=== PATIENT | female | born 1985 | race Caucasian/White ===

== ENCOUNTER 2019-07-15 14:22 | Emergency (ER) | payer MEDICAID ==
--- NOTE | 2019-07-15 15:10 | EDM.PDOC ---
ED HPI GENERAL MEDICAL PROBLEM - General Chief Complaint: Abdominal Pain Stated Complaint: STOMACH PAIN Time Seen by Provider: 07/15/19 14:50 Source of Information: Reports: Patient, RN Notes Reviewed History Limitations: Reports: No Limitations - History of Present Illness INITIAL COMMENTS - FREE TEXT/NARRATIVE: Ginny presents with complaints of lower abdominal pain. She states the pain started 3 days ago to the left lower abdomen with radiation to the left back. Today the pain started to the right lower abdomen and radiates to the back. She has not tried anything for her pain. Pain is sharp and stabbing at times. She reports nothing helps the pain. - Related Data Allergies Allergy/AdvReac Type Severity Reaction Status Date / Time sulfamethoxazole Allergy Hives Verified 07/15/19 14:43 [From ] trimethoprim [From ] Allergy Hives Verified 07/15/19 14:43 Home Meds: Home Meds Levothyroxine 1 tab PO DAILY 07/15/19 [History] SUMAtriptan [Imitrex] 1 tab PO BID PRN 07/15/19 [History] traZODone HCl [Trazodone HCl] 1 tab PO BEDTIME 07/15/19 [History] Past Medical History - Past Surgical History GI Surgical History: Reports: Bariatric Procedure Female Surgical History: Reports: Section Social & Family History - Tobacco Use Smoking Status *Q: Never Smoker ED ROS GENERAL - Review of Systems Review Of Systems: See Below Constitutional: Reports: No Symptoms HEENT: Reports: No Symptoms Respiratory: Reports: No Symptoms Cardiovascular: Reports: No Symptoms Endocrine: Reports: No Symptoms GI/Abdominal: Reports: Abdominal Pain, Other (RLQ and LLQ abdominal pain. ). Denies: Black Stool, Bloody Stool, Constipation, Diarrhea, Decreased Appetite, Difficulty Swallowing, Distension, Hematochezia, Melena, Nausea, Vomiting : Reports: No Symptoms Musculoskeletal: Reports: Other (bilateral flank pain) Skin: Reports: No Symptoms Neurological: Reports: No Symptoms Psychiatric: Reports: No Symptoms Hematologic/Lymphatic: Reports: No Symptoms Immunologic: Reports: No Symptoms ED EXAM, GI/ABD - Physical Exam Exam: See Below Exam Limited By: No Limitations General Appearance: Alert, WD/WN, No Apparent Distress Eyes: Bilateral: Normal Appearance Ears: Normal External Exam, Normal Canal, Hearing Grossly Normal, Normal TMs Nose: Normal Inspection, Normal Mucosa, No Blood Throat/Mouth: Normal Inspection, Normal Lips, Normal Teeth, Normal Gums, Normal Oropharynx, Normal Voice, No Airway Compromise Head: Atraumatic, Normocephalic Neck: Normal Inspection, Supple, Non-Tender, Full Range of Motion. No: Lymphadenopathy (R), Lymphadenopathy (L) Respiratory/Chest: No Respiratory Distress, Lungs Clear, Normal Breath Sounds, No Accessory Muscle Use, Chest Non-Tender Cardiovascular: Normal Peripheral Pulses, Regular Rate, Rhythm, No Edema, No Gallop, No Murmur, No Rub GI/Abdominal Exam: Normal Bowel Sounds, Soft, No Organomegaly, No Distention, No Mass, Tender, Other (pain with palpation to RLQ, LLQ with palpation). No: Guarding, Rigid, Rebound Back Exam: Full Range of Motion, CVA Tenderness (R), CVA Tenderness (L). No: Muscle Spasm Extremities: Normal Inspection, Normal Range of Motion, Non-Tender, No Pedal Edema, Normal Capillary Refill Neurological: Alert, Oriented, Normal Cognition, Normal Gait, No Motor/Sensory Deficits Psychiatric: Normal Affect, Normal Mood Skin Exam: Warm, Dry, Intact, Normal Color, No Rash Lymphatic: No Adenopathy Course - Vital Signs Last Recorded V/S: Last Vital Signs Temp 36.9 C 07/15/19 14:51 Pulse 62 07/15/19 16:28 Resp 16 07/15/19 16:28 BP 113/65 07/15/19 16:28 Pulse Ox 100 07/15/19 16:28 - Orders/Labs/Meds Labs: Laboratory Tests 07/15/19 07/15/19 07/15/19 Range/Units 14:52 14:57 15:15 WBC 6.0 (4.5-11.0) K/uL RBC 4.60 (3.30-5.50) M/uL Hgb 12.2 (12.0-15.0) g/dL Hct 39.3 (36.0-48.0) % MCV 85 (80-98) fL MCH 27 (27-31) pg MCHC 31 L (32-36) % Plt Count 213 (150-400) K/uL Neut % (Auto) 58 (36-66) % Lymph % (Auto) 34 (24-44) % [place] % (Auto) 6 (2-6) % Eos % (Auto) 2 (2-4) % Baso % (Auto) 1 (0-1) % Sodium (140-148) mmol/L Potassium (3.6-5.2) mmol/L Chloride (100-108) mmol/L Carbon Dioxide (21-32) mmol/L Anion Gap (5.0-14.0) mmol/L BUN (7-18) mg/dL Creatinine (0.6-1.0) mg/dL Est Cr Clr Drug Dosing mL/min Estimated GFR (MDRD) (>60) Glucose (74-106) mg/dL Calcium (8.5-10.1) mg/dL Urine Color Yellow (YELLOW) Urine Appearance Clear (CLEAR) Urine pH 6.0 (5.0-8.0) Ur Specific [place] >= 1.030 (1.008-1.030) Urine Protein Negative (NEGATIVE) mg/dL Urine Glucose (UA) Negative (NEGATIVE) mg/dL Urine Ketones Trace H (NEGATIVE) mg/dL Urine Occult Blood Negative (NEGATIVE) Urine Nitrite Negative (NEGATIVE) Urine Bilirubin Negative (NEGATIVE) Urine Urobilinogen 1.0 (0.2-1.0) EU/dL Ur Leukocyte Esterase Negative (NEGATIVE) Urine RBC Not seen (0-5) Urine WBC 0-5 (0-5) Ur Epithelial Cells Moderate Urine Bacteria Moderate Urine Mucus Many Urine HCG, Qual Negative 07/15/19 Range/Units 15:15 WBC (4.5-11.0) K/uL RBC (3.30-5.50) M/uL Hgb (12.0-15.0) g/dL Hct (36.0-48.0) % MCV (80-98) fL MCH (27-31) pg MCHC (32-36) % Plt Count (150-400) K/uL Neut % (Auto) (36-66) % Lymph % (Auto) (24-44) % [place] % (Auto) (2-6) % Eos % (Auto) (2-4) % Baso % (Auto) (0-1) % Sodium 142 (140-148) mmol/L Potassium 3.9 (3.6-5.2) mmol/L Chloride 104 (100-108) mmol/L Carbon Dioxide 28 (21-32) mmol/L Anion Gap 9.8 (5.0-14.0) mmol/L BUN 12 (7-18) mg/dL Creatinine 1.0 (0.6-1.0) mg/dL Est Cr Clr Drug Dosing 69.74 mL/min Estimated GFR (MDRD) > 60 (>60) Glucose 89 (74-106) mg/dL Calcium 8.6 (8.5-10.1) mg/dL Urine Color (YELLOW) Urine Appearance (CLEAR) Urine pH (5.0-8.0) Ur Specific [place] (1.008-1.030) Urine Protein (NEGATIVE) mg/dL Urine Glucose (UA) (NEGATIVE) mg/dL Urine Ketones (NEGATIVE) mg/dL Urine Occult Blood (NEGATIVE) Urine Nitrite (NEGATIVE) Urine Bilirubin (NEGATIVE) Urine Urobilinogen (0.2-1.0) EU/dL Ur Leukocyte Esterase (NEGATIVE) Urine RBC (0-5) Urine WBC (0-5) Ur Epithelial Cells Urine Bacteria Urine Mucus Urine HCG, Qual No significant findings of lab work. She will have toradol 60mg IM Complete CT abdomen/pelvis without contrast history of bariatric surgery, multiple c-sections Meds: Medications Discontinued Medications Generic Name Dose Route Start Last Admin Trade Name Freq PRN Reason Stop Dose Admin Ketorolac Tromethamine 60 mg 07/15/19 15:45 07/15/19 15:50 Toradol IM 07/15/19 15:46 60 mg ONETIME ONE Administration - Radiology Interpretation Free Text/Narrative:: CT scan was normal with noted: nonspecific inflammatory changes within the peritoneum in the left lower quadrant. These findings were reviewed with Dr. Guidry of . No concern for infection at this time. Patient can follow up with primary. - Re-Assessments/Exams Free Text/Narrative Re-Assessment/Exam: 07/15/19 16:40 Pain improved, patient notified of CT findings, all her questions were answered. She is in agreement with plan. Departure - Departure Time of Disposition: 16:36 Disposition: Home, Self-Care 01 Condition: Good Clinical Impression: Abdominal pain - Discharge Information *PRESCRIPTION DRUG MONITORING PROGRAM REVIEWED*: Not Applicable *COPY OF PRESCRIPTION DRUG MONITORING REPORT IN PATIENT ROBERTO: Not Applicable Instructions: Abdominal Pain, Adult, [id number] Referrals: Brandie Graves PA-C [Primary Care Provider] - Forms: ED Department Discharge Additional Instructions: You have been evaluated and treated for right lower quadrant and left lower quadrant abdominal pain. Your lab work was normal (cbc, bmp, ua) Your CT scan was normal with noted: nonspecific inflammatory changes within the peritoneum in the left lower quadrant. These findings were reviewed with Dr. Guidry of [place]. Drink plenty of fluids to avoid constipation. Take tylenol and as needed for pain. Follow up with primary provider in 7 to 10 days for a recheck. If pain worsens, you have issues or concerns return to the emergency room. Sepsis Event Note - Evaluation Sepsis Screening Result: No Definite Risk - Focused Exam Vital Signs: Vital Signs Temp Pulse Resp BP Pulse Ox 07/15/19 16:28 62 16 113/65 100 07/15/19 14:51 36.9 C 75 15 106/53 L 97 07/15/19 14:38 36.9 C 75 15 106/53 L 97 Date Exam was Performed: 07/15/19 Time Exam was Performed: 16:50 - Assessment/Plan Assessment:: Abdominal pain Plan: Patient evaluated and treated for right lower quadrant and left lower quadrant abdominal pain. Lab work was normal (cbc, bmp, ua) CT scan was normal with noted: nonspecific inflammatory changes within the peritoneum in the left lower quadrant. These findings were reviewed with Dr. Guidry of [place]. Drink plenty of fluids to avoid constipation. Take tylenol and as needed for pain. Follow up with primary provider in 7 to 10 days for a recheck. If pain worsens, have issues or concerns return to the emergency room.
[2019-07-15] MEDS ORDERED: Ketorolac 60 MG/2 ML SDV IM ONE (15:45)
--- NOTE | 2019-07-15 16:23 | CRLCT ---
Indication: Right lower quadrant pain. Left lower quadrant pain. Technique: Multiple contiguous axial images were obtained from the lung bases is symphysis pubis without intravenous contrast enhancement. Please note that all CT scans at this facility use dose modulation, iterative reconstruction, and/or weight-based dosing when appropriate to reduce radiation dose to as low as reasonably achievable. Comparison: None Findings: The lung bases are clear. The heart is normal in size. No pericardial effusion is identified. Postsurgical changes of a gastric bypass are identified. The unenhanced liver, spleen, pancreas, gallbladder, adrenals, and kidneys are normal. No intrahepatic there extrahepatic biliary ductal dilatation is identified. In the pelvis, the uterus has a grossly normal appearance. The urinary bladder is grossly normal. The small and large bowel are normal in caliber. An area of mild inflammation is identified in the left lower quadrant. There is no associated diverticula in this region. This is nonspecific. The appendix is normal in caliber. No inflammatory changes are identified in the right lower quadrant. No free air or free fluid is identified within the abdomen or pelvis. The aorta is normal in caliber. Impression: Visited change of the gastric bypass. Postoperative changes of the small bowel in the left upper quadrant. No evidence of bowel obstruction. Minimal nonspecific inflammatory changes identified within the peritoneum in the left lower quadrant, best seen on image number 109, series 2. There are no associated diverticula in this region. There is no evidence of appendicitis. Please note that all CT scans at this facility use dose modulation, iterative reconstruction, and/or weight-based dosing when appropriate to reduce radiation dose to as low as reasonably achievable. Dictated by Dolores Hanley MD @ Jul 15 2019 4:17PM Signed by Dr. Dolores Hanley @ Jul 15 2019 4:21PM
== END 2019-07-15 17:20 | disposition home or self-care (01) ==
LOC: JP.ED 14:22
DX: R10.31 Right lower quadrant pain (principal); R10.32 Left lower quadrant pain; Z88.2 Allergy status to sulfonamides; Z79.899 Other long term (current) drug therapy
CPT/HCPCS: 36415; 74176; 80048; 81001; 81025; 85025; 96372; 99284; J1885

== ENCOUNTER 2020-07-03 21:55 | Emergency (ER) | payer MEDICAID ==
[2020-07-03] MEDS ORDERED: Ketorolac 30 MG/ML SDV IM ONE (22:35)
--- NOTE | 2020-07-04 00:38 | EDM.PDOC ---
ED HPI GENERAL MEDICAL PROBLEM - General Chief Complaint: Abdominal Pain Stated Complaint: LOVER ABD/BACK PAIN Time Seen by Provider: 07/03/20 22:34 Source of Information: Reports: Patient History Limitations: Reports: No Limitations - History of Present Illness INITIAL COMMENTS - FREE TEXT/NARRATIVE: Ginny is a 34-year-old female presenting to the ED for evaluation of left lower quadrant abdominal pain radiating into the pelvis. The patient states her pain started tonight around 6 PM and has been fairly persistent. She rates it a comfortable 10 out of 10 in intensity. She states that she has been having the symptoms nearly daily since 7 months ago, however, they usually occur and last only about 10 to 15 minutes and then subside. Today the pain has been persistent for the last 4 hours and now radiates into her lower back. She denies any fever, chills, nausea or vomiting, or urinary symptoms like urgency, frequency, or burning with urination. She denies any dyspareunia. She has been seen in the clinic for this several times and tells me that she has been told that they never were able to find anything causing her pain. left lower abd Pain Score (Numeric/FACES): 10 - Related Data Allergies Allergy/AdvReac Type Severity Reaction Status Date / Time sulfamethoxazole Allergy Hives Verified 07/03/20 22:14 [From ] trimethoprim [From ] Allergy Hives Verified 07/03/20 22:14 Home Meds: Home Meds Levothyroxine 175 mg PO DAILY 07/15/19 [History] SUMAtriptan [Imitrex] 1 tab PO BID PRN 07/15/19 [History] traZODone HCl [Trazodone HCl] 1 tab PO BEDTIME 07/15/19 [History] Sertraline [Zoloft] 50 mg PO BEDTIME 07/03/20 [History] Past Medical History HEENT History: Reports: Impaired Vision, Other (See Below) Other HEENT History: glasses CODE INSPECTOR History: Reports: , Other (See Below) Other CODE INSPECTOR History: enlarged left ovary Neurological History: Reports: Headaches, Chronic Psychiatric History: Reports: Anxiety, Depression Endocrine/Metabolic History: Reports: Hyperthyroidism - Infectious Disease History Infectious Disease History: Reports: Chicken Pox - Past Surgical History GI Surgical History: Reports: Bariatric Procedure, Cholecystectomy Female Surgical History: Reports: Section Endocrine Surgical History: Reports: Thyroidectomy Social & Family History - Tobacco Use Tobacco Use Status *Q: Never Tobacco User - Recreational Drug Use Recreational Drug Use: No ED ROS GENERAL - Review of Systems Review Of Systems: See Below Constitutional: Reports: No Symptoms HEENT: Reports: No Symptoms Respiratory: Reports: No Symptoms Cardiovascular: Reports: No Symptoms Endocrine: Reports: No Symptoms GI/Abdominal: Reports: Abdominal Pain (Left lower quadrant rating into the pelvis, pain started 4 hours ago and has been constant at a 10 out of 10.) : Reports: Pain (Pelvic pain on the left side the last 4 hours) Musculoskeletal: Reports: Back Pain Skin: Reports: No Symptoms Neurological: Reports: No Symptoms Psychiatric: Reports: No Symptoms Hematologic/Lymphatic: Reports: No Symptoms Immunologic: Reports: No Symptoms ED EXAM, GI/ABD - Physical Exam Exam: See Below Exam Limited By: No Limitations General Appearance: Alert, No Apparent Distress (She does not appear to be in any significant pain despite reporting 10 out of 10 intensity pain in her left lower quadrant and pelvis.) Eyes: Bilateral: EOMI Head: Atraumatic Neck: Normal Inspection, Supple Respiratory/Chest: No Respiratory Distress, Lungs Clear, Normal Breath Sounds Cardiovascular: Normal Peripheral Pulses, Regular Rate, Rhythm, No Murmur GI/Abdominal Exam: Normal Bowel Sounds, Soft, Tender (Mild tenderness in the left lower quadrant. Mild to moderate tenderness in the suprapubic region.). No: Guarding, Rigid, Rebound (Female) Exam: Normal External Exam, Normal Speculum Exam, Adnexal Tenderness (Left adnexal tenderness with mild fullness on the left side.). No: Adnexal Mass, Cervix Motion Tenderness Back Exam: Normal Inspection, Full Range of Motion Extremities: Normal Inspection Neurological: Alert, Oriented, Normal Cognition, No Motor/Sensory Deficits Psychiatric: Normal Affect, Normal Mood Skin Exam: Warm, Dry Lymphatic: No Adenopathy Course - Vital Signs Last Recorded V/S: Last Vital Signs Temp 36.4 C 07/04/20 01:24 Pulse 81 07/04/20 01:24 Resp 14 07/04/20 01:24 BP 107/79 07/04/20 01:24 Pulse Ox 99 07/04/20 01:24 - Orders/Labs/Meds Orders: Active Orders 24 hr Category Date Time Status Transvaginal Non OB [US] Routine Exams 07/04/20 Ordered VL Duplex Abd Pel Ret Ltd [US] Routine Exams 07/04/20 Ordered Labs: Laboratory Tests 07/03/20 07/03/20 07/03/20 Range/Units 22:40 22:40 22:43 WBC 6.7 (4.5-11.0) K/uL RBC 4.42 (3.30-5.50) M/uL Hgb 10.7 L (12.0-15.0) g/dL Hct 36.1 (36.0-48.0) % MCV 82 (80-98) fL MCH 24 L (27-31) pg MCHC 30 L (32-36) % Plt Count 229 (150-400) K/uL Neut % (Auto) 59.1 (36-66) % Lymph % (Auto) 27.3 (24-44) % [place] % (Auto) 8.4 H (2-6) % Eos % (Auto) 3.9 (2-4) % Baso % (Auto) 1.3 H (0-1) % Sodium 143 (140-148) mmol/L Potassium 4.4 (3.6-5.2) mmol/L Chloride 105 (100-108) mmol/L Carbon Dioxide 28 (21-32) mmol/L Anion Gap 10.0 (5.0-14.0) mmol/L BUN 20 H D (7-18) mg/dL Creatinine 0.8 (0.6-1.0) mg/dL Est Cr Clr Drug Dosing 86.37 mL/min Estimated GFR (MDRD) > 60 (>60) Glucose 88 (74-106) mg/dL Calcium 8.3 L (8.5-10.1) mg/dL Total Bilirubin 0.3 (0.2-1.0) mg/dL AST 22 (15-37) U/L ALT 30 (12-78) U/L Alkaline Phosphatase 88 (46-116) U/L C-Reactive Protein < 0.05 (0.0-0.3) mg/dL Total Protein 6.8 (6.4-8.2) g/dL Albumin 3.6 (3.4-5.0) g/dL Globulin 3.2 (2.3-3.5) g/dL Albumin/Globulin Ratio 1.1 L (1.2-2.2) Urine Color Yellow (YELLOW) Urine Appearance Clear (CLEAR) Urine pH 7.0 (5.0-8.0) Ur Specific [place] 1.025 (1.008-1.030) Urine Protein Negative (NEGATIVE) mg/dL Urine Glucose (UA) Negative (NEGATIVE) mg/dL Urine Ketones Negative (NEGATIVE) mg/dL Urine Occult Blood Negative (NEGATIVE) Urine Nitrite Negative (NEGATIVE) Urine Bilirubin Negative (NEGATIVE) Urine Urobilinogen 1.0 (0.2-1.0) EU/dL Ur Leukocyte Esterase Negative (NEGATIVE) Urine RBC 0-5 (0-5) Urine WBC 0-5 (0-5) Ur Epithelial Cells Few Amorphous Sediment Few Urine Bacteria Few Urine Mucus Not seen Urine HCG, Qual 07/03/20 Range/Units 22:43 WBC (4.5-11.0) K/uL RBC (3.30-5.50) M/uL Hgb (12.0-15.0) g/dL Hct (36.0-48.0) % MCV (80-98) fL MCH (27-31) pg MCHC (32-36) % Plt Count (150-400) K/uL Neut % (Auto) (36-66) % Lymph % (Auto) (24-44) % [place] % (Auto) (2-6) % Eos % (Auto) (2-4) % Baso % (Auto) (0-1) % Sodium (140-148) mmol/L Potassium (3.6-5.2) mmol/L Chloride (100-108) mmol/L Carbon Dioxide (21-32) mmol/L Anion Gap (5.0-14.0) mmol/L BUN (7-18) mg/dL Creatinine (0.6-1.0) mg/dL Est Cr Clr Drug Dosing mL/min Estimated GFR (MDRD) (>60) Glucose (74-106) mg/dL Calcium (8.5-10.1) mg/dL Total Bilirubin (0.2-1.0) mg/dL AST (15-37) U/L ALT (12-78) U/L Alkaline Phosphatase (46-116) U/L C-Reactive Protein (0.0-0.3) mg/dL Total Protein (6.4-8.2) g/dL Albumin (3.4-5.0) g/dL Globulin (2.3-3.5) g/dL Albumin/Globulin Ratio (1.2-2.2) Urine Color (YELLOW) Urine Appearance (CLEAR) Urine pH (5.0-8.0) Ur Specific [place] (1.008-1.030) Urine Protein (NEGATIVE) mg/dL Urine Glucose (UA) (NEGATIVE) mg/dL Urine Ketones (NEGATIVE) mg/dL Urine Occult Blood (NEGATIVE) Urine Nitrite (NEGATIVE) Urine Bilirubin (NEGATIVE) Urine Urobilinogen (0.2-1.0) EU/dL Ur Leukocyte Esterase (NEGATIVE) Urine RBC (0-5) Urine WBC (0-5) Ur Epithelial Cells Amorphous Sediment Urine Bacteria Urine Mucus Urine HCG, Qual Negative Meds: Medications Discontinued Medications Generic Name Dose Route Start Last Admin Trade Name Freq PRN Reason Stop Dose Admin Ketorolac Tromethamine 30 mg 07/03/20 22:35 07/03/20 22:44 Ketorolac 30 Mg/Ml Sdv IM 07/03/20 22:36 30 mg ONETIME ONE Administration Ketorolac Tromethamine 15 mg 07/04/20 01:26 07/04/20 01:51 Ketorolac 30 Mg/Ml Sdv IM 07/04/20 01:27 15 mg ONETIME ONE Administration - Re-Assessments/Exams Free Text/Narrative Re-Assessment/Exam: 07/04/20 00:41 reviewed the patient's labs showing a normal CBC and comprehensive metabolic profile with the exception of a BUN of 20. Her u rinalysis is unremarkable. Her urine is negative. We proceeded with a pelvic exam showing some fullness and tenderness on the left side. I suspect that she has an ovarian cyst, however, we will get an ultrasound to make sure she does not have ovarian torsion. Her abdominal exam is otherwise underwhelming considering the amount of pain she is reporting. Patient did get Toradol 30 mg IM with improvement in her symptoms. Gonococcal and chlamydia swabs are pending. 07/04/20 02:09 an ultrasound of the pelvis was performed with transabdominal and transvaginal imaging. The patient has a dominant follicle on the left ovary measuring 1.9 x 1.8 x 1.4 cm. This appears to be a simple cyst. There is no free fluid in the pelvis. Based on the pelvic exam, the patient was quite tender wit h palpation of the ovary and this is likely the nidus for her left lower quadrant pain. We will put her on Toradol 10 mg 4 times daily as needed for pain and give her a prescription for a few hydrocodone for breakthrough pain. If not improving, she should follow-up with her primary care provider. Departure - Departure Time of Disposition: 02:10 Disposition: Home, Self-Care 01 Clinical Impression: Left lower quadrant abdominal pain, Left ovarian cyst - Discharge Information Instructions: Ovarian Cyst, Abdominal Pain, Adult, [id number] Referrals: Gregoria Wan MD [Primary Care Provider] - Forms: ED Department Discharge Care Plan Goals: Your labs were unremarkable for any significant abnormalities including your CBC, comprehensive metabolic profile, and urinalysis. Urine was negative. Your ultrasound showed a simple left ovarian cyst measuring 1.9 x 1.8 x 1.4 cm. There was no evidence for bleeding in the cyst nor was there evidence for free fluid in the pelvis that would indicate that the cyst was leaking. This is likely the cause for your left lower quadrant abdominal pain. We will continue to treat with Toradol 10 mg 4 times a day as needed for pain control. In addition, I am sending you with a small amount of hydrocodone for breakthrough pain. Please use this quite sparingly as it can induce significant constipation and ultimately worsen your pain. I recommend you follow-up with your primary care provider if continued problems with this issue. Sepsis Event Note (ED) - Evaluation Sepsis Screening Result: No Definite Risk - Focused Exam Vital Signs: Vital Signs Temp Pulse Resp BP Pulse Ox 07/04/20 01:24 36.4 C 81 14 107/79 99 07/03/20 22:20 36.5 C 76 16 114/76 100 07/03/20 22:07 36.5 C 76 16 114/76 100 - Problem List & Annotations (1) Left lower quadrant abdominal pain SNOMED Code(s): 576205414 Code(s): R10.32 - LEFT LOWER QUADRANT PAIN Status: Acute Priority: High Current Visit: Yes (2) Left ovarian cyst SNOMED Code(s): 38208711 Code(s): N83.202 - UNSPECIFIED OVARIAN CYST, LEFT SIDE Status: Acute Priority: High Current Visit: Yes - Problem List Review Problem List Initiated/Reviewed/Updated: Yes - My Orders Last 24 Hours: My Active Orders 07/04/20 Transvaginal Non OB [US] Routine VL Duplex Abd Pel Ret Ltd [US] Routine - Assessment/Plan Last 24 Hours: My Active Orders 07/04/20 Transvaginal Non OB [US] Routine VL Duplex Abd Pel Ret Ltd [US] Routine
[2020-07-04] MEDS ORDERED: Ketorolac 30 MG/ML SDV IM ONE (01:26)
--- NOTE | 2020-07-04 02:03 | CRLUS ---
INDICATION: Left pelvic pain. COMPARISON: Report of the CT of the abdomen and pelvis from 07/15/2019 FINDINGS: Transvaginal and transabdominal ultrasound examination of the female pelvis was performed. Initial examination is performed with transabdominal technique and transvaginal technique is used for better visualization of the pelvic structures. The uterus is anteverted with no evidence of mass. It measures 10.4 x 3.4 x 7.1 cm. The endometrial lining is mildly increased in thickness at 9 mm. Incidental note is made of a small amount of fluid in the cervix. The right ovary is normal in appearance. The left ovary contains a dominant simple follicular cyst measuring 1.9 x 1.8 x 1.4 centimeters. The ovaries are normal in size, the right measuring 3.7 x 2.3 x 1.8 cm and the left measuring 4.6 x 2.8 x 1.3 cm. There is normal color and pulse doppler flow in both ovaries. There is no sign of free fluid in the pelvis. IMPRESSION: Normal ultrasound examination of the female pelvis using transvaginal and transabdominal technique. Dominant left follicular simple cyst measuring up to 1.9 centimeters in diameter. Dictated by Delano Reyes MD @ 07/04/2020 2:02:[address] Delano Reyes @ Jul 04 2020 2:02AM
--- NOTE | 2020-07-04 08:51 | CRLUS ---
Final Report: INDICATION: Left pelvic pain. COMPARISON: Report of the CT of the abdomen and pelvis from 07/15/2019 FINDINGS: Transvaginal and transabdominal ultrasound examination of the female pelvis was performed. Initial examination is performed with transabdominal technique and transvaginal technique is used for better visualization of the pelvic structures. The uterus is anteverted with no evidence of mass. It measures 10.4 x 3.4 x 7.1 cm. The endometrial lining is mildly increased in thickness at 9 mm. Incidental note is made of a small amount of fluid in the cervix. The right ovary is normal in appearance. The left ovary contains a dominant simple follicular cyst measuring 1.9 x 1.8 x 1.4 centimeters. The ovaries are normal in size, the right measuring 3.7 x 2.3 x 1.8 cm and the left measuring 4.6 x 2.8 x 1.3 cm. There is normal color and pulse doppler flow in both ovaries. There is no sign of free fluid in the pelvis. IMPRESSION: Normal ultrasound examination of the female pelvis using transvaginal and transabdominal technique. Dominant left follicular simple cyst measuring up to 1.9 centimeters in diameter. Dictated by Delano Reyes MD @ 07/04/2020 2:02:39 AM Signed by: Delano Reyes MD @07/04/2020 2:02:39 AM (Electronic Signature) MTDD
[2020-07-06 16:12] LABS: CHLAMYDIA TRACHOMATIS, NAA Negative (Negative); NEISSERIA GONORRHOEAE, NAA Negative (Negative)
== END 2020-07-04 02:26 | disposition home or self-care (01) ==
LOC: JP.ED 21:55
DX: N83.202 Unspecified ovarian cyst, left side (principal); E03.9 Hypothyroidism, unspecified; Z88.1 Allergy status to other antibiotic agents; Z79.899 Other long term (current) drug therapy
CPT/HCPCS: 36415; 76830; 76856; 80053; 81001; 81025; 85025; 86140; 87210; 87491; 87591; 93976; 96372; 99283; 99284-25; J1885

== ENCOUNTER 2020-09-16 20:08 | Emergency (ER) | payer MEDICAID ==
[2020-09-16] MEDS ORDERED: Sodium Chloride 0.9% 10 ML Syringe FLUSH PRN (21:10)
[2020-09-16] MEDS ORDERED: Ketorolac 30 MG/ML SDV IVPUSH ONE (21:12)
[2020-09-16] MEDS ORDERED: diphenhydrAMINE 50 MG/ML SDV IVPUSH ONE (21:12)
[2020-09-16] MEDS ORDERED: Prochlorperazine 10 MG/2 ML SDV IVPUSH ONE (21:12)
[2020-09-16] MEDS ORDERED: Lactated Ringers 1,000 ML IV SCH (21:15)
--- NOTE | 2020-09-16 21:16 | EDM.PDOC ---
ED HPI GENERAL MEDICAL PROBLEM - General Chief Complaint: Headache Stated Complaint: HEADACHE, BLURRED VISION, SHAKEY , SOB Time Seen by Provider: 09/16/20 21:01 Source of Information: Reports: Patient, Old Records, RN Notes Reviewed - History of Present Illness INITIAL COMMENTS - FREE TEXT/NARRATIVE: 34-year-old female presents emergency department day complaint of headache, she has had a headache for about 24 hours does have a history of migraines she states this is different for her she does have frontal type headache problems with the vision vision is blurry she has had some nausea no vomiting the light does bother her this headache is more intense. She is also having some chest pain rates the chest pain 8 out of 10 it does come and go it is worse with exertion she does have nausea and chills with the chest pain does feel short of breath she has no cardiac history she is unsure if she has any family history she does have a history of gastric bypass as well. Review of systems is diffic ult to obtain as she seems to be positive for most questions she is a poor historian Headache Pain Score (Numeric/FACES): 10 - Related Data Allergies Allergy/AdvReac Type Severity Reaction Status Date / Time sulfamethoxazole Allergy Hives Verified 07/03/20 22:14 [From ] trimethoprim [From ] Allergy Hives Verified 07/03/20 22:14 Home Meds: Home Meds Levothyroxine 175 mg PO DAILY 07/15/19 [History] SUMAtriptan [Imitrex] 1 tab PO BID PRN 07/15/19 [History] traZODone HCl [Trazodone HCl] 1 tab PO BEDTIME 07/15/19 [History] Sertraline [Zoloft] 50 mg PO BEDTIME 07/03/20 [History] Ferrous Sulfate 220 mg PO DAILY 09/16/20 [History] Past Medical History HEENT History: Reports: Impaired Vision, Other (See Below) Other HEENT History: glasses [employer] History: Reports: , Other (See Below) Other [employer] History: enlarged left ovary Neurological History: Reports: Headaches, Chronic Psychiatric History: Reports: Anxiety, Depression Endocrine/Metabolic History: Reports: Hyperthyroidism - Infectious Disease History Infectious Disease History: Reports: Chicken Pox - Past Surgical History GI Surgical History: Reports: Bariatric Procedure, Cholecystectomy Female Surgical History: Reports: Section Endocrine Surgical History: Reports: Thyroidectomy Social & Family History - Tobacco Use Tobacco Use Status *Q: Never Tobacco User - Caffeine Use Caffeine Use: Reports: Coffee - Recreational Drug Use Recreational Drug Use: No ED ROS GENERAL - Review of Systems Review Of Systems: Unable To Obtain Reason Not Obtained: Positive for every review of systems - Physical Exam Exam: See Below Exam Limited By: No Limitations General Appearance: Alert, WD/WN, No Apparent Distress Eye Exam: Bilateral Eye: EOMI, Normal Fundi, Normal Inspection, PERRL Respiratory/Chest: No Respiratory Distress, Lungs Clear, Normal Breath Sounds, No Accessory Muscle Use, Chest Non-Tender Cardiovascular: Regular Rate, Rhythm, No Murmur GI/Abdominal: Soft, Non-Tender Extremities: No Pedal Edema #1 Interpretation EKG Date: 09/16/20 Time: 21:33 Rhythm: NSR Crane: Normal P-Wave: Present QRS: Normal ST-T: Normal QT: Normal Comparison: NA - No Prior EKG Course - Vital Signs Last Recorded V/S: Last Vital Signs Temp 97.9 F 09/16/20 20:40 Pulse 73 09/16/20 20:40 Resp 16 09/16/20 20:40 BP 107/64 09/16/20 20:40 Pulse Ox 100 09/16/20 20:40 - Orders/Labs/Meds Orders: Active Orders 24 hr Category Date Time Status EKG Documentation Completion [RC] ASDIRECTED Care 09/16/20 21:11 Active Peripheral IV Care [RC] . DIRECTED Care 09/16/20 21:11 Active Lactated Ringers [Ringers, Lactated] 1,000 ml Med 09/16/20 21:15 Active IV .BOLUS Sodium Chloride 0.9% [Saline Flush] Med 09/16/20 21:10 Active 10 ml FLUSH ASDIRECTED PRN Peripheral IV Insertion Adult [OM.PC] Urgent Oth 09/16/20 21:10 Ordered EKG 12 Lead [EK] Stat Ther 09/16/20 21:10 Ordered Medication Orders Lactated Ringer's (Ringers, Lactated) 1,000 mls @ 500 mls/hr IV .BOLUS FABRIZIO Last Admin: 09/16/20 21:42 Dose: 500 mls/hr Documented by: ALISA Sodium Chloride (Sodium Chloride 0.9% 10 Ml Syringe) 10 ml FLUSH ASDIRECTED PRN PRN Reason: Keep Vein Open Last Admin: 09/16/20 21:48 Dose: 10 ml Documented by: ALISA Labs: Laboratory Tests 09/16/20 09/16/20 09/16/20 Range/Units 21:24 21:24 21:24 WBC 6.7 (4.5-11.0) K/uL RBC 4.42 (3.30-5.50) M/uL Hgb 10.6 L (12.0-15.0) g/dL Hct 34.2 L (36.0-48.0) % MCV 77 L (80-98) fL MCH 24 L (27-31) pg MCHC 31 L (32-36) % Plt Count 233 (150-400) K/uL Neut % (Auto) 58.4 (36-66) % Lymph % (Auto) 28.9 (24-44) % Posey % (Auto) 9.3 H (2-6) % Eos % (Auto) 2.7 (2-4) % Baso % (Auto) 0.7 (0-1) % Sodium 142 (140-148) mmol/L Potassium 3.8 (3.6-5.2) mmol/L Chloride 105 (100-108) mmol/L Carbon Dioxide 27 (21-32) mmol/L Anion Gap 9.6 (5.0-14.0) mmol/L BUN 13 (7-18) mg/dL Creatinine 0.8 (0.6-1.0) mg/dL Est Cr Clr Drug Dosing 86.37 mL/min Estimated GFR (MDRD) > 60 (>60) Glucose 89 (74-106) mg/dL Lactic Acid 0.5 (0.4-2.0) mmol/L Calcium 8.4 L (8.5-10.1) mg/dL Total Bilirubin 0.2 (0.2-1.0) mg/dL AST 18 (15-37) U/L ALT 23 (12-78) U/L Alkaline Phosphatase 85 (46-116) U/L Troponin I < 0.017 (0.000-0.056) ng/mL Total Protein 6.7 (6.4-8.2) g/dL Albumin 3.3 L (3.4-5.0) g/dL Globulin 3.4 (2.3-3.5) g/dL Albumin/Globulin Ratio 1.0 L (1.2-2.2) Meds: Medications Generic Name Dose Route Start Last Admin Trade Name Freq PRN Reason Stop Dose Admin Lactated Ringer's 1,000 mls @ 500 mls/hr 09/16/20 21:15 09/16/20 21:42 Ringers, Lactated IV 500 mls/hr .BOLUS FABRIZIO Administration Sodium Chloride 10 ml 09/16/20 21:10 09/16/20 21:48 Sodium Chloride 0.9% 10 Ml Syringe FLUSH 10 ml ASDIRECTED PRN Administration Keep Vein Open Discontinued Medications Generic Name Dose Route Start Last Admin Trade Name Freq PRN Reason Stop Dose Admin Diphenhydramine HCl 25 mg 09/16/20 21:12 09/16/20 21:42 Diphenhydramine 50 Mg/Ml Sdv IVPUSH 09/16/20 21:13 25 mg ONETIME ONE Administration Ketorolac Tromethamine 30 mg 09/16/20 21:12 09/16/20 21:43 Ketorolac 30 Mg/Ml Sdv IVPUSH 09/16/20 21:13 30 mg ONETIME ONE Administration Prochlorperazine Edisylate 5 mg 09/16/20 21:12 09/16/20 21:45 Prochlorperazine 10 Mg/2 Ml Sdv IVPUSH 09/16/20 21:13 5 mg ONETIME ONE Administration Departure - Departure Time of Disposition: 23:00 Disposition: Home, Self-Care 01 Condition: Fair Clinical Impression: Migraine - Discharge Information Instructions: Migraine Headache, [id number] Referrals: PCP,None [Primary Care Provider] - Forms: ED Department Discharge Additional Instructions: Continue with your regular medications, please followup with your primary care provider in 3-5 days if not better, please call return to the emergency department with worsening of symptoms. Sepsis Event Note (ED) - Evaluation Sepsis Screening Result: No Definite Risk - Focused Exam Vital Signs: Vital Signs Temp Pulse Resp BP Pulse Ox 09/16/20 20:40 97.9 F 73 16 107/64 100 - My Orders Last 24 Hours: My Active Orders 09/16/20 21:10 Sodium Chloride 0.9% [Saline Flush] 10 ml FLUSH ASDIRECTED PRN Peripheral IV Insertion Adult [OM.PC] Urgent EKG 12 Lead [EK] Stat 09/16/20 21:11 EKG Documentation Completion [RC] ASDIRECTED Peripheral IV Care [RC] . DIRECTED 09/16/20 21:15 Lactated Ringers [Ringers, Lactated] 1,000 ml IV .BOLUS - Assessment/Plan Last 24 Hours: My Active Orders 09/16/20 21:10 Sodium Chloride 0.9% [Saline Flush] 10 ml FLUSH ASDIRECTED PRN Peripheral IV Insertion Adult [OM.PC] Urgent EKG 12 Lead [EK] Stat 09/16/20 21:11 EKG Documentation Completion [RC] ASDIRECTED Peripheral IV Care [RC] . 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
--- NOTE | 2020-09-16 22:53 | CRLCT ---
For Patients: As a result of the Century Cures Act, medical imaging exams and procedure reports are released immediately into your electronic medical record. You may view this report before your referring provider. If you have questions, please contact your health care provider. DATE: 09/16/2020 CLINICAL HISTORY: Patient with headache. TECHNIQUE: Standard CT scanning of the head was performed. COMPARISON: None. FINDINGS: There is no intracranial hemorrhage. The prescott matter-white matter differentiation is intact. The size of the ventricular system is normal for age. There is no mass effect or midline shift. The calvarium is unremarkable. The orbits are unremarkable. The paranasal sinuses are unremarkable. The mastoid air cells are unremarkable. The soft tissues are unremarkable. IMPRESSION: Normal head CT. Please note that all CT scans at this facility use dose modulation, iterative reconstruction, and/or weight-based dosing when appropriate to reduce radiation dose to as low as reasonably achievable. Dictated by Glenda Quintero MD @ 09/16/2020 10:52:[address] Glenda Quintero @ Sep 16 2020 10:52PM
== END 2020-09-16 23:15 | disposition home or self-care (01) ==
LOC: JP.ED 20:08
DX: G43.909 Migraine, unspecified, not intractable, without status migrainosus (principal); E05.90 Thyrotoxicosis, unspecified without thyrotoxic crisis or storm; Z88.2 Allergy status to sulfonamides; Z79.899 Other long term (current) drug therapy
CPT/HCPCS: 36415; 70450; 80053; 83605; 84484; 85025; 93005; 96374; 96375; 99284; J0780; J1200; J1885; J7120

== ENCOUNTER 2021-04-17 07:22 | Inpatient (IN) | payer MEDICAID ==
[2021-04-17] MEDS ORDERED: fentaNYL 100 MCG/2 ML SDV IVPUSH ONE ×3 (07:48→12:57)
[2021-04-17] MEDS ORDERED: Ondansetron 4 MG/2 ML SDV IVPUSH ONE (07:48)
[2021-04-17] MEDS ORDERED: Sodium Chloride 0.9% 10 ML Syringe FLUSH ONE (07:55)
[2021-04-17] MEDS ORDERED: Lactated Ringers 1,000 ML IV SCH (08:00)
[2021-04-17] MEDS: Sodium Chloride 0.9% 10 ML Syringe FLUSH PRN ×2 (09:51→10:07)
[2021-04-17] MEDS: Sodium Chloride 0.9% 50 ML IV SCH ×2 (09:51→10:07)
[2021-04-17] MEDS: Iopamidol 612 MG/ML 100 ML Bottle IV SCH ×2 (09:51→10:07)
[2021-04-17] MEDS ORDERED: HYDROmorphone 1 MG/ML Syringe IVPUSH ONE (10:46)
[2021-04-17] MEDS ORDERED: Benzocaine/Cetylpyridinium/Menthol Lozenge MUCMEM PRN (11:13)
[2021-04-17] MEDS ORDERED: hydrOXYzine HCL 100 MG/2 ML SDV IM PRN (11:13)
[2021-04-17] MEDS ORDERED: Bupivacaine 0.5%/EPINEPHrine 1:200,000 50 ML MDV ONE (11:17)
[2021-04-17] MEDS ORDERED: fentaNYL 250 MCG/5 ML SDV ONE (11:29)
[2021-04-17] MEDS ORDERED: Glycopyrrolate 0.2 MG/ML 5 ML MDV ONE (11:30)
[2021-04-17] MEDS ORDERED: Neostigmine Methylsulfate 1 MG/ML 5 ML Syringe ONE (11:30)
[2021-04-17] MEDS ORDERED: Propofol 200 MG/20 ML SDV ONE (11:30)
[2021-04-17] MEDS ORDERED: Rocuronium 50 MG/5 ML Vial ONE (11:30)
[2021-04-17] MEDS ORDERED: fentaNYL 100 MCG/2 ML SDV IVPUSH PRN (11:30)
[2021-04-17] MEDS ORDERED: Succinylcholine 200 MG/10 ML MDV ONE (11:30)
[2021-04-17] MEDS ORDERED: Ondansetron 4 MG/2 ML SDV ONE (11:30)
[2021-04-17] MEDS ORDERED: Dexamethasone 4 MG/ML SDV ONE (11:30)
[2021-04-17 11:47] LABS: CORONAVIRUS COVID-19 NAA NEGATIVE (NEGATIVE)
[2021-04-17] MEDS: Piperacillin/Tazobactam/Dext 3.375 GM in Premix Bag 1 BAG IV SCH ×3 (11:56→23:46)
[2021-04-17] MEDS ORDERED: Bupivacaine 0.5% 50 ML MDV INJECT ONE ×2 (12:38)
[2021-04-17] MEDS ORDERED: hydrOXYzine HCL 100 MG/2 ML SDV IM ONE (12:57)
[2021-04-17] MEDS: Acetaminophen/HYDROcodone 325-5 MG Tab PO PRN ×3 (14:05→23:46)
[2021-04-17] MEDS ORDERED: Lactated Ringers 1,000 ML IV ONE (15:55)
[2021-04-17] MEDS ORDERED: Zolpidem 5 MG Tab PO PRN (18:00)
[2021-04-17] MEDS: Docusate Sodium 100 MG Cap PO PRN (23:54)
[2021-04-18] MEDS: Acetaminophen/HYDROcodone 325-5 MG Tab PO PRN ×5 (03:40→23:59)
[2021-04-18] MEDS: Piperacillin/Tazobactam/Dext 3.375 GM in Premix Bag 1 BAG IV SCH ×4 (05:58→23:56)
[2021-04-18] MEDS: Enoxaparin 40 MG/0.4 ML Syringe SUBCUT SCH (09:03)
[2021-04-18] MEDS: Docusate Sodium 100 MG Cap PO PRN (09:07)
[2021-04-19] MEDS: Piperacillin/Tazobactam/Dext 3.375 GM in Premix Bag 1 BAG IV SCH (05:49)
[2021-04-19] MEDS: Docusate Sodium 100 MG Cap PO PRN (07:34)
[2021-04-19] MEDS: Acetaminophen/HYDROcodone 325-5 MG Tab PO PRN (07:34)
[2021-04-19] MEDS: Enoxaparin 40 MG/0.4 ML Syringe SUBCUT SCH (08:30)
== END 2021-04-19 11:03 | disposition home or self-care (01) | DRG 343 ==
LOC: JP.ED 07:22 → JP.SDS 11:12 → JP.MS 11:13 → OBSVTOIN 04-18 11:24
PROVIDERS: ADMIT Surgery; ATTEND Surgery
PROC: 0DTJ4ZZ Resection of Appendix, Percutaneous Endoscopic Approach (ICD-10-PCS; principal; 2021-04-17)
DX: K35.30 Acute appendicitis with localized peritonitis, without perforation or gangrene (principal); F41.9 Anxiety disorder, unspecified; F32.A Depression, unspecified; E05.90 Thyrotoxicosis, unspecified without thyrotoxic crisis or storm; H54.7 Unspecified visual loss; Z20.822 Contact with and (suspected) exposure to COVID-19; Z90.49 Acquired absence of other specified parts of digestive tract; Z88.2 Allergy status to sulfonamides; Z88.8 Allergy status to other drugs, medicaments and biological substances; Z79.890 Hormone replacement therapy; Z79.899 Other long term (current) drug therapy
CPT/HCPCS: 0241U; 36415; 74177; 80048; 80053; 81001; 81025; 83605; 83690; 85025; 88304; 96374; 96375; 96376; 99283; 99285-25; A9270-GY; J0171; J0330; J1100; J1170; J1650; J2405; J2543; J2704; J2710; J2795; J3010; J3410; J3490; J7120; Q9967

== ENCOUNTER 2021-09-17 11:13 | Emergency (ER) | payer MEDICAID ==
[2021-09-17] MEDS: Ketorolac 30 MG/ML SDV IVPUSH ONE (12:54)
[2021-09-17] MEDS: Ondansetron 4 MG/2 ML SDV IVPUSH ONE (12:54)
[2021-09-17] MEDS: Sodium Chloride 0.9% 1,000 ML IV SCH (12:55)
[2021-09-17] MEDS: methylPREDNISolone Sodium Succinate 125 MG/2 ML SDV IVPUSH ONE (13:56)
[2021-09-17] MEDS: HYDROmorphone 1 MG/ML Syringe IM ONE (14:24)
== END 2021-09-17 14:28 | disposition home or self-care (01) ==
LOC: JP.ED 11:13
DX: G43.909 Migraine, unspecified, not intractable, without status migrainosus (principal); F17.210 Nicotine dependence, cigarettes, uncomplicated; Z88.1 Allergy status to other antibiotic agents; Z79.899 Other long term (current) drug therapy
CPT/HCPCS: 96361; 96374; 96375; 99283; J1170; J1885; J2405; J2930; J7030

== ENCOUNTER 2022-02-12 16:37 | Emergency (ER) | payer MEDICAID | END 2022-02-12 17:44 | disposition home or self-care (01) | LOC: JP.ED 16:37 | DX: E11.649 Type 2 diabetes mellitus with hypoglycemia without coma (principal); K91.1 Postgastric surgery syndromes; Z98.84 Bariatric surgery status; Z88.1 Allergy status to other antibiotic agents; Z79.899 Other long term (current) drug therapy | CPT/HCPCS: 81025; 99284 ==

== ENCOUNTER 2022-08-10 23:53 | Emergency (ER) | payer MEDICAID ==
[2022-08-11 01:42] LABS: BASOPHILS ABSOLUTE AUTO 0.08 K/uL (0.00-0.10); EOSINOPHILS ABSOLUTE AUTO 0.47 K/uL (0.00-0.40); EOSINOPHILS PERCENT AUTO 5.6 % (0.0-5.4); HEMATOCRIT 38.3 % (34.3-46.0); HEMOGLOBIN 12.2 g/dL (11.2-15.5); IMMATURE GRAN PERCENT AUTO 0.2 % (0.0-0.7); LYMPHOCYTES ABSOLUTE AUTO 2.54 K/uL (0.8-3.3); LYMPHOCYTES PERCENT AUTO 30.5 % (11.4-47.7); MEAN CORPUSCULAR HGB CONC 31.9 g/dL (31.6-35.5); MEAN CORPUSCULAR VOLUME 84.7 fL (81.4-99.0); MONOCYTES ABSOLUTE AUTO 0.49 K/uL (0.20-0.90); MONOCYTES PERCENT AUTO 5.9 % (3.3-12.6); NEUTROPHILS ABSOLUTE AUTO 4.72 K/uL (1.0-7.6); NEUTROPHILS PERCENT AUTO 56.8 % (40.0-78.1); PLATELET COUNT,PLT 216 K/uL (130-375); RED BLOOD CELL COUNT 4.52 M/uL (3.77-5.24); WHITE BLOOD CELL COUNT,WBC 8.3 K/uL (3.2-11.0)
[2022-08-11 01:45] LABS: IMMATURE GRAN ABSOLUTE AUTO 0.02 K/uL (0.00-0.23)
[2022-08-11 01:59] LABS: APPEARANCE,URINE CLOUDY (CLEAR); BILIRUBIN,URINE NEGATIVE (NEGATIVE); COLOR,URINE YELLOW (YELLOW); GLUCOSE,URINE NEGATIVE (NEGATIVE); KETONES,URINE NEGATIVE (NEGATIVE); LEUKOCYTE ESTERASE,URINE SMALL (NEGATIVE); NITRITE,URINE POSITIVE (NEGATIVE); OCCULT BLOOD,URINE NEGATIVE (NEGATIVE); PROTEIN,URINE NEGATIVE (NEGATIVE); UROBILINOGEN,URINE 0.2 EU/dL (0.2-1.0)
[2022-08-11 02:05] LABS: ALANINE AMINOTRANSFERASE,ALT 23 U/L (12-78); ALBUMIN 3.4 g/dL (3.4-5.0); ALKALINE PHOSPHATASE 68 U/L (46-116); ASPARTATE AMNIOTRANSFERASE,AST 20 U/L (15-37); BILIRUBIN TOTAL 0.3 mg/dL (0.2-1.0); BLOOD UREA NITROGEN,BUN 22 mg/dL (7-18); CALCIUM 8.3 mg/dL (8.5-10.1); CARBON DIOXIDE,CO2 28 mmol/L (21-32); CHLORIDE,CL 104 mmol/L (100-108); CREATININE 0.8 mg/dL (0.6-1.0); ESTIMATED GFR 98 mL/min (>60); GLUCOSE RANDOM 95 mg/dL (74-106); POTASSIUM,K 4.2 mmol/L (3.6-5.2); PROTEIN TOTAL,TP 6.8 g/dL (6.4-8.2); SODIUM,NA 137 mmol/L (140-148)
[2022-08-11 02:07] LABS: AMORPHOUS SEDIMENT,URINE NOT SEEN; BACTERIA,URINE MANY; EPITHELIAL CELLS,URINE FEW; MUCUS,URINE RARE; RBC,URINE 0-5 (0-5)
[2022-08-11 02:08] LABS: ANION GAP 9.2 mmol/L (5.0-14.0); C-REACTIVE PROTEIN < 0.05 mg/dL (0.0-0.3)
== END 2022-08-11 02:25 | disposition home or self-care (01) ==
LOC: JP.ED 23:53
DX: N30.00 Acute cystitis without hematuria (principal); E05.90 Thyrotoxicosis, unspecified without thyrotoxic crisis or storm; Z88.1 Allergy status to other antibiotic agents; Z79.899 Other long term (current) drug therapy
CPT/HCPCS: 36415; 74019; 74019-26; 80053; 81001; 81025; 85025; 86140; 87086; 87088; 87186; 99284

== ENCOUNTER 2022-08-23 02:41 | Emergency (ER) | payer MEDICAID ==
[2022-08-23] MEDS ORDERED: Sodium Chloride 0.9% 10 ML Syringe FLUSH PRN (03:40)
[2022-08-23] MEDS ORDERED: Ondansetron 4 MG/2 ML SDV IVPUSH ONE (03:41)
[2022-08-23] MEDS ORDERED: HYDROmorphone 0.5 MG/0.5 ML Syringe IVPUSH ONE (03:41)
[2022-08-23] MEDS ORDERED: Lactated Ringers 1,000 ML IV SCH (03:45)
[2022-08-23 03:46] LABS: BASOPHILS ABSOLUTE AUTO 0.08 K/uL (0.00-0.10); BASOPHILS PERCENT AUTO 0.9 % (0.1-1.3); EOSINOPHILS ABSOLUTE AUTO 0.37 K/uL (0.00-0.40); EOSINOPHILS PERCENT AUTO 4.1 % (0.0-5.4); HEMATOCRIT 38.8 % (34.3-46.0); HEMOGLOBIN 12.5 g/dL (11.2-15.5); IMMATURE GRAN ABSOLUTE AUTO 0.03 K/uL (0.00-0.23); IMMATURE GRAN PERCENT AUTO 0.3 % (0.0-0.7); MEAN CORPUSCULAR HEMOGLOBIN 27.4 pg (31.6-35.5); MEAN CORPUSCULAR HGB CONC 32.2 g/dL (31.6-35.5); MEAN CORPUSCULAR VOLUME 84.9 fL (81.4-99.0); MONOCYTES PERCENT AUTO 5.5 % (3.3-12.6); NEUTROPHILS ABSOLUTE AUTO 6.23 K/uL (1.0-7.6); NEUTROPHILS PERCENT AUTO 69.2 % (40.0-78.1); PLATELET COUNT,PLT 231 K/uL (130-375); RED BLOOD CELL COUNT 4.57 M/uL (3.77-5.24)
[2022-08-23 03:56] LABS: A/G RATIO 1.1 (1.2-2.2); ALANINE AMINOTRANSFERASE,ALT 53 U/L (12-78); ALBUMIN 3.4 g/dL (3.4-5.0); ALKALINE PHOSPHATASE 65 U/L (46-116); ASPARTATE AMNIOTRANSFERASE,AST 88 U/L (15-37); BILIRUBIN TOTAL 0.5 mg/dL (0.2-1.0); BLOOD UREA NITROGEN,BUN 15 mg/dL (7-18); CALCIUM 8.1 mg/dL (8.5-10.1); CARBON DIOXIDE,CO2 25 mmol/L (21-32); CHLORIDE,CL 103 mmol/L (100-108); CREATININE 0.7 mg/dL (0.6-1.0); EST CRCL DRUG DOSING (CG) 100.94 mL/min; ESTIMATED GFR 116 mL/min (>60); GLUCOSE RANDOM 84 mg/dL (74-106); POTASSIUM,K 3.8 mmol/L (3.6-5.2); PROTEIN TOTAL,TP 6.6 g/dL (6.4-8.2); SODIUM,NA 137 mmol/L (140-148)
[2022-08-23 04:04] LABS: ANION GAP 12.8 mmol/L (5.0-14.0)
[2022-08-23 04:33] LABS: APPEARANCE,URINE CLEAR (CLEAR); BILIRUBIN,URINE NEGATIVE (NEGATIVE); COLOR,URINE YELLOW (YELLOW); GLUCOSE,URINE NEGATIVE (NEGATIVE); KETONES,URINE TRACE mg/dL (NEGATIVE); LEUKOCYTE ESTERASE,URINE NEGATIVE (NEGATIVE); NITRITE,URINE NEGATIVE (NEGATIVE); OCCULT BLOOD,URINE NEGATIVE (NEGATIVE); PROTEIN,URINE NEGATIVE (NEGATIVE); UROBILINOGEN,URINE 0.2 EU/dL (0.2-1.0)
[2022-08-23 04:38] LABS: AMORPHOUS SEDIMENT,URINE NOT SEEN; BACTERIA,URINE FEW; EPITHELIAL CELLS,URINE FEW; MUCUS,URINE NOT SEEN; RBC,URINE 0-5 (0-5); WBC,URINE 0-5 (0-5)
[2022-08-23] MEDS ORDERED: Iopamidol 612 MG/ML 100 ML Bottle IV PRN (04:43)
[2022-08-23] MEDS ORDERED: Sodium Chloride 0.9% 10 ML SDV FLUSH ONE (04:43)
[2022-08-23] MEDS ORDERED: Sodium Chloride 0.9% 50 ML IV SCH (04:45)
== END 2022-08-23 07:01 | disposition home or self-care (01) ==
LOC: JP.ED 02:41
DX: K59.04 Chronic idiopathic constipation (principal); E05.90 Thyrotoxicosis, unspecified without thyrotoxic crisis or storm; F17.210 Nicotine dependence, cigarettes, uncomplicated; Z79.899 Other long term (current) drug therapy; Z88.1 Allergy status to other antibiotic agents
CPT/HCPCS: 36415; 74177; 80053; 81001; 81025; 83605; 83690; 85025; J1170; J2405; J3490; J7120; Q9967; 96361; 96374; 96375; 99284-25

== ENCOUNTER 2022-10-07 23:36 | Emergency (ER) | payer MEDICAID ==
[2022-10-08] MEDS ORDERED: Oxymetazoline 0.05% Nasal Spray 30 ML Bottle NAS ONE (00:08)
== END 2022-10-08 01:03 | disposition home or self-care (01) ==
LOC: JP.ED 23:36
DX: K02.9 Dental caries, unspecified (principal); K04.7 Periapical abscess without sinus; E03.9 Hypothyroidism, unspecified; Z88.1 Allergy status to other antibiotic agents; Z79.899 Other long term (current) drug therapy
CPT/HCPCS: 99282; 99283

== ENCOUNTER 2023-09-22 23:36 | Emergency (ER) | payer MEDICAID ==
[2023-09-23 00:26] LABS: AMORPHOUS SEDIMENT,URINE NOT SEEN; APPEARANCE,URINE SLIGHTLY CLOUDY (CLEAR); BACTERIA,URINE MANY; BILIRUBIN,URINE NEGATIVE (NEGATIVE); COLOR,URINE YELLOW (YELLOW); EPITHELIAL CELLS,URINE FEW; GLUCOSE,URINE NEGATIVE (NEGATIVE); KETONES,URINE TRACE mg/dL (NEGATIVE); LEUKOCYTE ESTERASE,URINE TRACE (NEGATIVE); MUCUS,URINE NOT SEEN; NITRITE,URINE NEGATIVE (NEGATIVE); OCCULT BLOOD,URINE NEGATIVE (NEGATIVE); PROTEIN,URINE NEGATIVE (NEGATIVE); RBC,URINE 0-5 (0-5); UROBILINOGEN,URINE 0.2 EU/dL (0.2-1.0)
== END 2023-09-23 00:49 | disposition home or self-care (01) ==
LOC: JP.ED 23:36
DX: O99.891 Other specified diseases and conditions complicating pregnancy (principal); R10.2 Pelvic and perineal pain; M54.50 Low back pain, unspecified; O99.333 Smoking (tobacco) complicating pregnancy, third trimester; F17.210 Nicotine dependence, cigarettes, uncomplicated; Z88.2 Allergy status to sulfonamides; Z88.8 Allergy status to other drugs, medicaments and biological substances; Z79.890 Hormone replacement therapy; Z79.899 Other long term (current) drug therapy; Z3A.00 Weeks of gestation of pregnancy not specified; E05.90 Thyrotoxicosis, unspecified without thyrotoxic crisis or storm; Z90.49 Acquired absence of other specified parts of digestive tract
CPT/HCPCS: 81001; 84112; 87086; 99283